=== PATIENT | female | born 1995 | race African-American/Black ===

== ENCOUNTER 2018-09-01 05:18 | Emergency (ER) | payer SELFPAY ==
[~2018-09-01] VITALS: Ht 162.6 cm; Wt 54.5 kg
[2018-09-01 05:26] VITALS: Ht 162.6 cm; Wt 54.5 kg
[2018-09-01] MEDS ORDERED: AUGMENTIN 875-11 TAB PO (05:42)
[2018-09-01 06:14] VITALS: BP 132/84
== END 2018-09-01 06:14 | disposition home or self-care (01) ==
LOC: D.ER 05:18
DX: S61.451A Open bite of right hand, initial encounter (principal); S01.85XA Open bite of other part of head, initial encounter; Y04.1XXA Assault by human bite, initial encounter; Y93.89 Activity, other specified; Y92.89 Other specified places as the place of occurrence of the external cause; F17.200 Nicotine dependence, unspecified, uncomplicated